=== PATIENT | female | born 1960 | race Caucasian/White ===

== ENCOUNTER 2017-06-16 14:37 | Outpatient (CLI) | payer OTHER ==
--- NOTE | 2017-06-16 15:10 | Diagnostic Imaging Report ---
CYNTHIA DAY [facility] [address] [facility] [address] [place] [id number] Report Submission Date: Jun 16, 2017 3:09:18 PM DRYER OPERATOR Patient Study Name: NILO FABIAN Date: Jun 16, 2017 2:51:17 PM DRYER OPERATOR Modality Type: CR Gender: F Description: CHEST : 64 Institution: [facility] Physician: CYNTHIA DAY Examination: PA and lateral chest. History: Evaluate lung ty. Comparison exam: None provided Findings: PA lateral chest demonstrate a normal cardiac and mediastinal silhouette. Chronic appearing interstitial changes. Few scattered granuloma. No focal infiltrate. No blunting of the costophrenic margins. Osseous structures are appropriate for age. Impression: Chronic changes. No acute pulmonary process. Electronically signed on Jun 16, 2017 3:09:18 PM DRYER OPERATOR by: Christoph BERNABE
== END 2017-06-16 14:40 ==
LOC: RAD 14:37
PROVIDERS: ATTEND Family Medicine
DX: J43.1 Panlobular emphysema (principal); R06.02 Shortness of breath
CPT/HCPCS: 71020

== ENCOUNTER 2017-11-29 14:14 | Outpatient (CLI) | payer OTHER ==
[2017-11-29 14:33] LABS: BASOPHILS % 0.4 (0.0-1.5); EOSINOPHILS % 2.7 % (0.0-6.8); MEAN CORPUSCULAR HEMOGLOBIN 31.2 pg (28.0-34.0); MEAN CORPUSCULAR VOLUME 97.4 fl (80.0-100.0); MONOCYTES % 4.2 % (0.0-11.0)
[2017-11-29 14:57] LABS: eGFR (African) > 60; eGFR (Non-African) > 60
== END 2017-11-29 14:19 ==
LOC: LAB 14:14
PROVIDERS: ATTEND Family Medicine
DX: I10 Essential (primary) hypertension (principal); E78.00 Pure hypercholesterolemia, unspecified
CPT/HCPCS: 36415; 80053; 80061; 85025

== ENCOUNTER 2019-07-03 16:40 | Outpatient (CLI) | payer OTHER ==
[2019-07-03 17:02] LABS: BASOPHILS % 0.8 % (0.0-1.5)
[2019-07-03 17:09] LABS: eGFR (Non-African) > 60
== END 2019-07-03 16:45 ==
LOC: LABRHC 16:40
PROVIDERS: ATTEND Family Medicine
DX: I10 Essential (primary) hypertension (principal)
CPT/HCPCS: 80053; 85025